=== PATIENT | female | born 1975 ===

== ENCOUNTER 2018-08-16 07:49 | Inpatient (IN) | payer OTHER ==
[2018-08-16] MEDS ORDERED: ceFAZolin IV 1 gm in Dextrose 1 GM/50 ML BAG IVPB ONE (10:58)
[2018-08-16] MEDS ORDERED: Lidocaine/Epinephrine 1% 1:100000 10 ML IJ ONE (10:59)
[2018-08-16] MEDS ORDERED: ceFAZolin 1 gm FROZEN Premix 1 GM/50 ML ML IVPB ONE (10:59)
[2018-08-16] MEDS ORDERED: Bupivacaine 0.25% 20 ML INJ IJ ONE (10:59)
[2018-08-16] MEDS ORDERED: Bacitracin 500 Units/gm Oint Foilpak UD ONE (11:30)
[2018-08-16] MEDS ORDERED: Clindamycin 2% Vaginal Cream(40 gm) ONE (12:00)
[2018-08-16] MEDS ORDERED: Collagen Hemostat Powder ONE (12:09)
--- NOTE | 2018-08-16 13:12 | PCM.SURG1 ---
Surgeon's Initial Post Op Note - Surgeon's Notes Surgeon: Dr. Zhang Passenger Brakeman: Dr. Bell Type of Anesthesia: General Endo Anesthesia Administered By: Dr. Martel Pre-Operative Diagnosis: 42 yo with Cervical Dysplasia , Menoorhagia, Irregular mentrual cycle , Chronic pelvic pain Operative Findings: Uterus 15 wks gestation , multiple adhesion , Right ovarian cyst , Post-Operative Diagnosis: Same as above Operation Performed: Laparoscopy Hysterectomy, BSO, LSO, Cystoscopy Specimen/Specimens Removed: Uterus, Bilateral Tubes, ovaries Estimated Blood Loss: EBL {In ML}: 50 Blood Products Given: N/A Drains Used: No Drains Post-Op Condition: Good Date of Surgery/Procedure: 08/16/18 Time of Surgery/Procedure: 13:12
[2018-08-16] MEDS: HYDROmorphone 0.5 mg/0.5 ml ISec IVP PRN ×2 (14:03→14:38)
[2018-08-16] MEDS ORDERED: DiphenhydrAMINE 50 mg/ml Inj IVP STA (15:35)
[2018-08-16] MEDS ORDERED: DiphenhydrAMINE 50 mg/ml Inj ONE (15:40)
[2018-08-16 16:44] VITALS: PULSE 68; RESP 18
[2018-08-16] MEDS ORDERED: Lactated Ringer's 1,000 ML IV SCH (17:48)
[2018-08-16] MEDS: Bacitracin Ointment 30 GM TUBE TOP SCH (18:14)
[2018-08-16] MEDS: ceFAZolin 2 GM in Sodium Chloride 0.9% 100 ML IVPB SCH (18:14)
[2018-08-17] MEDS: ceFAZolin 2 GM in Sodium Chloride 0.9% 100 ML IVPB SCH ×2 (03:30→10:14)
[2018-08-17 07:16] LABS: MEAN CELL VOLUME 88.3 fL (81.0-99.0); MEAN CORPUSCULAR HEMOGLOBIN 30.4 pg (27.0-31.0); MEAN CORPUSCULAR HGB CONC 34.5 g/dL (33.0-37.0); MEAN PLATELET VOLUME 7.4 fL (7.2-11.7); RBC 3.95 Mil/uL (3.80-5.20); RED CELL DISTRIBUTION WIDTH 13.6 % (11.5-14.5); WHITE BLOOD COUNT 11.4 K/uL (4.8-10.8)
[2018-08-17 07:21] LABS: ALB/GLOB RATIO 1.3 (1.0-2.1); ALBUMIN 3.2 g/dL (3.5-5.0); ALT/SGPT 32 U/L (9-52); AST/SGOT 30 U/L (14-36); BLOOD UREA NITROGEN 12 mg/dL (7-17); CALCIUM 9.1 mg/dl (8.6-10.4); GFR NON-AFRICAN AMERICAN > 60
--- NOTE | 2018-08-17 07:40 | OP ---
PROCEDURE DATE: 08/16/2018 SURGEON: Marixa Zhang MD CERAMIC RESEARCH ENGINEER: Tsering Bell MD TYPE OF ANESTHESIA: General anesthesia with endotracheal tube. ANESTHESIA ADMINISTERED BY: Dr. Martel. PREOPERATIVE DIAGNOSIS: A 42-year-old female with chronic pelvic pain, menorrhagia, and cervical dysplasia. POSTOPERATIVE DIAGNOSIS: A 42-year-old female with chronic pelvic pain, menorrhagia and cervical dysplasia with additional finding of multiple adhesion. PROCEDURE: Total laparoscopic hysterectomy, bilateral salpingo-oophorectomy, lysis of adhesion as well as cystoscopy. OPERATIVE FINDINGS: A normal bimanual exam reveals a large anteverted uterus with a palpable adnexal cyst on the left side and normal tubes. Normal cystoscopy with jets seen bilaterally, post total laparoscopic hysterectomy. SPECIMEN: Uterus with cervix, tubes and the ovary. ESTIMATED BLOOD LOSS: 100 mL. COMPLICATIONS: None. INDICATIONS: Mrs. Miles was a 42-year-old female, known to have cervical dysplasia as well as menorrhagia, and the patient requested definite management with hysterectomy after discussing all the possible options. She also desires to remove her ovaries. This would place her in surgical menopause. She was aware of the risks factors, benefits, and alternatives of procedure. Risk factors have included but not limited to infection, bleeding, damage to the surrounding organs and tissues, as well as possible blood transfusion and . Again risk factors were explained but not limited to. DESCRIPTION OF PROCEDURE: The was then taken to the operating room, given general anesthesia which was found to be adequate, placed in dorsal lithotomy position. The patient was prepped and draped in normal sterile fashion. In that particular instance, a Harris catheter was inserted under sterile condition and left inside remaining of the case. A weighted speculum was placed into the vagina and the right angled retractor. The cervix was visualized and grasped anteriorly with a single-toothed tenaculum. The cervical os was dilated with Buck dilators. In that particular instance up on dilation, the Vcare medium-sized device was utilized in order to manipulate the uterus. Once that was placed, the weighted speculum was removed, and all the instruments were removed from vagina and attention was turned to the abdomen. A 0.5% bupivacaine solution was used for infiltration of all port sites. Beginning in the subumbilical area, the skin was filtrated with 2 mL and then a 5 mm incision was made. Through this incision, a 5-mm optic view port was utilized under direct visualization. The peritoneum was insufflated with CO2 gas to maximum pressure of 20 mmHg. Again the laparoscope was entered without any difficulty. The 5 mm port was utilized. Gas was insufflated during the entry of the port. Examination of the peritoneum revealed no signs of injury from the entry site and some adhesions. The patient was then placed in stiff Trendelenburg and two other 5 mm trocars were placed, one on the left and another on the right in the standard technique, taking care to avoid the epigastric vessels. Old trocars were placed under direct visualization with no damage to the underlying structures. It was noted that she had adhesion and the laparoscopic scissors were utilized under cautery in order to release the adhesion. Excellent hemostasis was noted. The uterus was held above. From below revealed that she had a cyst on the left side. The uterus was approximately 12 weeks gestational site. In that particular site, beginning on the right side, the infundibular ligament was identified by lifting the tube and towards the anterior wall of the abdomen. The ureter was confirmed along the pelvic side wall and peristalsis was noted. The LigaSure device was then used to clamp and ligate the IP ligament in three sequential sites with ligation. The IP was then cut again being sure to be clear of the ureter. Following this, the broad ligament was subsequently grasped, ligated, and cut in the direction of the round ligament, next to the fallopian tube. The round ligament was then ligated and cut followed by the utero-ovarian ligament, following that the anterior leaf of the broad ligament was then taken down on the left side, transecting down towards the peritoneal resection at the base of the bladder and adjacent to the cervix. The same process was then repeated on the left side such that both sides were met and the anterior leaflet had been proximally skeletonized. Once the bladder was appropriately dissected free from the lower anterior uterine segment and the tissue was skeletonized, the uterine arteries were bilaterally clamped and ligated. Pedicles were checked and hemostasis at the level of the cuff of the uterine manipulator. The vaginal wall was incised circumferentially using the monopolar hook. The uterus, tubes, and ovaries were delivered to the vagina and sent to pathology. A sterile glove was placed in the vagina to form a pneumoperitoneum seal, and all pedicles as well as the cup edges were examined. Hemostasis was achieved with bipolar cautery. The vaginal cuff was closed with 0 Vicryl avoiding the bladder. Following the closures, examination was revealed using the port, and in that particular instance, the FloSeal was placed at the cuff. All ports were removed under direct visualization. Hemostasis was noted. Again the skin incision was closed with 3-0 Monocryl, and now particular attention was then turned to the vagina with the Harris catheter was removed. A 70-degree scope was utilized, and that 70-degree scope, bilateral urethral jets were identified and were patent. A new Harris was then placed. At the end of the procedure, all sponge instruments and sharps were counted and they were correct. Estimated blood loss was 50 mL. The patient tolerated the procedure well. She was then taken to the recovery room in stable condition. Marixa Zhang MD
[2018-08-17 09:17] VITALS: BP 103/59; TEMP 98.3; O2SAT 97
[2018-08-17] MEDS ORDERED: Simethicone 80 mg Chewtab PO SCH (10:00)
[2018-08-17] MEDS: Bacitracin Ointment 30 GM TUBE TOP SCH (10:19)
--- NOTE | 2018-08-17 12:42 | CP.PCM.DIS ---
Provider - Provider Date of Admission: 08/16/18 13:30 Attending physician: Marixa Zhang MD Time Spent in preparation of Discharge (in minutes): 40 Diagnosis - Discharge Diagnosis (1) Status post laparoscopic hysterectomy Status: Acute Hospital Course - Lab Results Lab Results: Most Recent Lab Values WBC 11.4 K/uL (4.8-10.8) H 08/17/18 06:58 RBC 3.95 Mil/uL (3.80-5.20) 08/17/18 06:58 Hgb 12.0 g/dL (11.0-16.0) 08/17/18 06:58 Hct 34.9 % (34.0-47.0) 08/17/18 06:58 MCV 88.3 fL (81.0-99.0) 08/17/18 06:58 MCH 30.4 pg (27.0-31.0) 08/17/18 06:58 MCHC 34.5 g/dL (33.0-37.0) 08/17/18 06:58 RDW 13.6 % (11.5-14.5) 08/17/18 06:58 Plt Count 274 K/uL (130-400) 08/17/18 06:58 MPV 7.4 fL (7.2-11.7) 08/17/18 06:58 Sodium 139 mmol/L (132-148) 08/17/18 06:58 Potassium 2.6 mmol/L (3.6-5.2) L 08/17/18 06:58 Chloride 102 mmol/L (98-107) 08/17/18 06:58 Carbon Dioxide 27 mmol/L (22-30) 08/17/18 06:58 Anion Gap 13 (10-20) 08/17/18 06:58 BUN 12 mg/dL (7-17) 08/17/18 06:58 Creatinine 0.7 mg/dL (0.7-1.2) 08/17/18 06:58 Est GFR ( Amer) > 60 08/17/18 06:58 Est GFR (Non-Af Amer) > 60 08/17/18 06:58 Random Glucose 125 mg/dL (65-105) H 08/17/18 06:58 Calcium 9.1 mg/dl (8.6-10.4) 08/17/18 06:58 Total Bilirubin 0.4 mg/dL (0.2-1.3) 08/17/18 06:58 AST 30 U/L (14-36) 08/17/18 06:58 ALT 32 U/L (9-52) 08/17/18 06:58 Alkaline Phosphatase 62 U/L (38-126) 08/17/18 06:58 Total Protein 5.8 g/dL (6.3-8.3) L 08/17/18 06:58 Albumin 3.2 g/dL (3.5-5.0) L 08/17/18 06:58 Globulin 2.5 gm/dL (2.2-3.9) 08/17/18 06:58 Albumin/Globulin Ratio 1.3 (1.0-2.1) 08/17/18 06:58 Blood Type O POSITIVE 08/16/18 09:02 Antibody Screen Negative 08/16/18 09:02 - Hospital Course Hospital Course: 42 yo S/P Laparoscopy Total Hysterectomy/bso/SINGH/Cystoscopy - Date & Time of H&P Date of H&P: 08/17/18 Time of H&P: 12:41 Discharge Exam - Head Exam Head Exam: ATRAUMATIC, NORMAL INSPECTION, NORMOCEPHALIC - Eye Exam Eye Exam: EOMI, Normal appearance, PERRL Pupil Exam: NORMAL ACCOMODATION, PERRL - ENT Exam ENT Exam: Mucous Membranes Dry, Mucous Membranes Moist, Normal Exam, Normal External Ear Exam, Normal Oropharynx, TM's Normal Bilaterally - Neck Exam Neck exam: Full Rom - Respiratory Exam Respiratory Exam: Clear to PA & Lateral - Cardiovascular Exam Cardiovascular Exam: REGULAR RHYTHM - GI/Abdominal Exam GI & Abdominal Exam: Normal Bowel Sounds - Rectal Exam Rectal Exam: NORMAL INSPECTION - Exam Exam: Circumcision, NORMAL INSPECTION External exam: NORMAL EXTERNAL EXAM Speculum exam: NORMAL SPECULUM EXAM Bimanual exam: NORMAL BIMANUAL EXAM - Neurological Exam Neurological exam: Alert, CN II-XII Intact, Normal Gait, Oriented x3, Reflexes Normal - Psychiatric Exam Psychiatric exam: Normal Affect, Normal Mood - Skin Skin Exam: Dry, Intact, Normal Color, Warm - Additional Findings Additional findings: Abdomen: soft. NT,ND Discharge Plan - Follow Up Plan Instructions: Hysterectomy (DC), Oophorectomy (DC), Ovarian Cyst Removal (DC), Cystoscopy (DC)
== END 2018-08-17 14:00 | disposition home or self-care (01) | DRG 513 ==
LOC: C.SDS 07:49 → C.4M 13:30
PROVIDERS: ADMIT Obstetrics & Gynecology; ATTEND Obstetrics & Gynecology
PROC: 0UT74ZZ Resection of Bilateral Fallopian Tubes, Percutaneous Endoscopic Approach (ICD-10-PCS; 2018-08-16)
PROC: 0TJB8ZZ Inspection of Bladder, Via Natural or Artificial Opening Endoscopic (ICD-10-PCS; 2018-08-16)
PROC: 0UT94ZZ Resection of Uterus, Percutaneous Endoscopic Approach (ICD-10-PCS; principal; 2018-08-16 10:00)
PROC: 0UT24ZZ Resection of Bilateral Ovaries, Percutaneous Endoscopic Approach (ICD-10-PCS; 2018-08-16 10:00)
DX: D06.9 Carcinoma in situ of cervix, unspecified (principal); G89.29 Other chronic pain; N83.02 Follicular cyst of left ovary; N92.0 Excessive and frequent menstruation with regular cycle; N85.4 Malposition of uterus